=== PATIENT | male | born 1965 | race Caucasian/White ===

== ENCOUNTER → 2017-08-28 | Emergency (ER) | payer OTHER ==
[~2017-08-28] VITALS: Ht 172.7 cm; Wt 65.8 kg
[~2017-08-28] MED LIST: CIPRO500 MG PO; FLAGYL500MG PO
== END | disposition left against medical advice (07) ==
LOC: ER 18:10
DX: Z53.20 Procedure and treatment not carried out because of patient's decision for unspecified reasons (principal)